=== PATIENT | male | born 1990 | race African-American/Black ===

== ENCOUNTER 2019-05-07 11:51 | Emergency (ER) | payer SELFPAY ==
--- NOTE | 2019-05-07 12:34 | RAD ---
2 view chest: CLINICAL HISTORY: Dizziness COMPARISON: None FINDINGS: There is no focal consolidation, effusion, or pneumothorax. Cardiac silhouette is normal in size. No acute osseous abnormality. IMPRESSION: No focal consolidation.
[2019-05-07 12:41] LABS: #Basophils 0.1 thou/uL (0.0-0.2); #Eosinphils 0.7 thou/uL (0.0-0.7); #Monocytes 0.8 thou/uL (0.11-0.59); #Neutrophils 2.3 thou/uL (1.40-6.50); %Basophils 1.3 % (0.0-1.0); %Eosinophils 12.3 % (0.0-10.0); %Lymphocytes 33.8 % (21.0-51.0); %Neutrophils 39.6 % (42.0-75.0); Hemoglobin 14.4 g/dL (14.0-18.0); Mean Corpuscular Hemoglobin 27.1 pg (27.0-31.0); Mean Corpuscular Volume 82.1 fL (78.0-98.0); Mean Platelet Volume 8.1 fL (7.4-10.4); Platelet Count 204 thou/uL (130-400); Red Blood Cell (RBC) Count 5.31 mill/uL (4.70-6.10); White Blood Cell (WBC) Count 5.9 thou/uL (4.8-10.8)
[2019-05-07 13:10] LABS: ALT (SGPT) 131 U/L (8-55); AST (SGOT) 45 U/L (5-34); Albumin 4.5 g/dL (3.5-5.0); Alkaline Phosphatase 72 U/L (40-110); Anion Gap 11 mmol/L (10-20); BUN (Urea Nitrogen) 19 mg/dL (8.9-20.6); Bilirubin, Total 0.4 mg/dL (0.2-1.2); Calc. Creatinine Clearance 0 mL/min (70-130); Calcium 9.3 mg/dL (7.8-10.44); Carbon Dioxide 30 mmol/L (22-29); Chloride 105 mmol/L (98-107); Estimated GFR-MDRD Greater than 90; Globulin 2.8 g/dL (2.4-3.5); Glucose 117 mg/dL (70-105); Potassium 4.1 mmol/L (3.5-5.1); Protein, Total 7.3 g/dL (6.0-8.3); Sodium 142 mmol/L (136-145)
[2019-05-07] MEDS ORDERED: Ketorolac Tromethamine 60 MG/2 ML VIAL ONE (14:39)
[2019-05-07] MEDS ORDERED: Meclizine HCl 25 MG TAB ONE (14:56)
== END 2019-05-07 15:59 | disposition home or self-care (01) ==
LOC: ERS 11:51
DX: R51 Headache (principal); R42 Dizziness and giddiness
CPT/HCPCS: 36415; 71046; 80053; 82375; 83605; 84484; 85025; 93005; 94760; 96372; J1885; J8597